=== PATIENT | female | born 1985 | race Caucasian/White ===

== ENCOUNTER → 2016-05-10 | Outpatient (CLI) | payer BC, OTHER ==
[~2016-05-10] MED LIST: ADVI200T PO; NORCOTAB PO; PRENTAB55 PO; TYLE167L PO
[2016-05-10 21:21] LABS: MEAN CORPUSCULAR HEMOGLOBIN 30.2 pg (27.0-33.0); MEAN CORPUSCULAR HGB CONC 34.5 g/dl (32.0-36.5); MEAN CORPUSCULAR VOLUME 87.5 fl (80.0-96.0); RED CELL DISTRIBUTION WIDTH 13.7 % (11.5-14.5); WHITE BLOOD COUNT 11.2 K/mm3 (4.0-10.0)
== END ==
LOC: M WUC 15:09
PROVIDERS: ATTEND Obstetrics & Gynecology
DX: Z34.82 Encounter for supervision of other normal pregnancy, second trimester (principal)

== ENCOUNTER → 2016-07-20 | Outpatient (REF) | payer BC, OTHER | LOC: M LAB REF 17:05 | PROVIDERS: ATTEND Advanced Practice Midwife | DX: Z34.83 Encounter for supervision of other normal pregnancy, third trimester (principal); Z3A.35 35 weeks gestation of pregnancy ==

== ENCOUNTER 2016-07-23 13:15 | Outpatient (CLI) | payer BC, OTHER ==
[~2016-07-23] VITALS: Ht 147.3 cm; Wt 68.0 kg
[2016-07-23 13:39] VITALS: BP 127/76
[2016-07-23] MEDS ORDERED: LR 1,000 ML IV SCH (14:00)
[2016-07-23 14:01] VITALS: BP 136/74
[2016-07-23 14:24] VITALS: BP 126/74
[2016-07-23 15:19] VITALS: BP 123/70
--- NOTE | 2016-07-23 16:01 | IPNPDOC ---
Date Seen The patient was seen on 07/23/16. Progress Note SUBJECTIVE: The patient is a 30-year-old female who is a 011 at 35 weeks 4 days gestation with an AMINA of 08/23/2016 based off of her LMP and consistent with her first trimester ultrasound. She initiated her care in the first trimester of her at [facility]. Her has been complicated with gestational hypertension. Patient had an elevated blood pressure on 07/20/2016 at 35 weeks 1 day gestation being 140/82. At that time patient denied any signs or symptoms of preeclampsia and script for a 24 urine and labs as given to patient for her to do. Patient presented to the office today with complaints of blurred vision, headache, nausea, and epigastric pain started this morning at 0800. Her blood pressure in the office once 160/98. She was sent over to labor and delivery for monitoring. Since being in labor and delivery, patient now denies epigastric pain, nausea, headache, visual changes. Patient reports symptoms resolved with the last 2 hours. OBJECTIVE: Category I FHR tracing. PHYSICAL EXAMINATION: VITAL SIGNS: Please see below. CARDIOVASCULAR: Regular rate and rhythm. RESPIRATORY: Regular rate. No use of accessory muscles. Lugs clear bilaterally. ABDOMINAL: gravid EXTREMITIES: No pitting edema. NEUROLOGICAL: A+Ox3 ASSESSMENT: IUP at 35 weeks 4 days gestation, gestational hypertension, category 1 heart rate tracing PLAN: Patient was sent to labor and delivery for observation. IV with lactated Ringer's ordered labs as ordered. Clear liquid diet. Out of bed to bathroom only. Patient is to initiate a 24-hour urine while in hospital. Diagnosis of gestational hypertension reviewed with patient. Reviewed follow up in office for remainder of . Patient is to have weekly OB and NST visits. She will do a growth ultrasound this week also. Patient given a letter to be out of work. All labs reviewed and WNL. Doctor Onel to review labs and vital signs and initiate discharge. VS, I&O, 24H, Fishbone Vital Signs/I&O Vital Signs Date Time Temp Pulse Resp B/P Pulse Ox O2 Delivery O2 Flow Rate FiO2 07/23/16 14:24 110 18 126/74 07/23/16 13:39 99.2 Vital Signs Label Value Date Time Pulse 96 07/23/16 1401 Respiratory Rate 18 bpm 07/23/16 1401 Blood Pressure Assessment 136/74 (94) 07/23/16 1401 Source Automatic Cuff (NIBP) Pulse 110 07/23/16 1424 Respiratory Rate 18 bpm 07/23/16 1424 Blood Pressure Assessment 126/74 (91) 07/23/16 1424 Source Automatic Cuff (NIBP) Laboratory Data 24H LABS Laboratory Tests 2 07/23/16 13:32: Serology Scanned Report Hepatitis B Testing 07/23/16 14:01: Blood Urea Nitrogen 11, Creatinine 0.55, Sodium Level 137, Potassium Level 3.8, Chloride Level 102, Carbon Dioxide Level 25, Calcium Level 9.4, Aspartate Amino Transf (AST/SGOT) 17, Alanine Aminotransferase (ALT/SGPT) 15, Alkaline Phosphatase 78, Total Bilirubin 0.4, Uric Acid 3.4, Total Protein 6.4, Albumin 2.9L, Albumin/Globulin Ratio 0.83L, Anion Gap 10, Glomerular Filtration Rate > 60.0 07/23/16 14:02: Urine Random Creatinine 80.9, Urine Random Total Protein 12.4H CBC/BMP Laboratory Tests 07/23/16 14:01 Calcium Level 9.4, Aspartate Amino Transf (AST/SGOT) 17, Alanine Aminotransferase (ALT/SGPT) 15, Alkaline Phosphatase 78, Total Bilirubin 0.4, Uric Acid 3.4, Total Protein 6.4, Albumin 2.9 L, Red Blood Count 3.72 L, Mean Corpuscular Volume 87.3, Mean Corpuscular Hemoglobin 31.1, Mean Corpuscular Hemoglobin Concent 35.6, Red Cell Distribution Width 13.0 Item Value Date Time White Blood Count 9.2 K/mm3 07/23/16 1401 Urine Random Creatinine 80.9 MG/DL 07/23/16 1402 Urine Random Total Protein 12.4 MG/DL H 07/23/16 1402 Blood Urea Nitrogen 11 MG/DL 07/23/16 1401 Creatinine 0.55 MG/DL 07/23/16 1401 Glomerular Filtration Rate > 60.0 07/23/16 1401 Fasting Glucose 103 MG/DL 07/23/16 1401 Uric Acid 3.4 MG/DL 07/23/16 1401 Total Bilirubin 0.4 MG/DL 07/23/16 1401 Aspartate Amino Transf (AST/SGOT) 17 U/L 4/7/17 1401 Alanine Aminotransferase (ALT/SGPT) 15 U/L 07/23/16 1401 Alkaline Phosphatase 78 U/L 07/23/16 1401 Albumin 2.9 GM/DL L 07/23/16 1401 Albumin/Globulin Ratio 0.83 L 07/23/16 1401 MARGARET FORTE CNM Jul 23, 2016 16:01
[2016-07-23 16:27] VITALS: BP 136/68
[2016-07-23 17:25] VITALS: BP 119/65
== END 2016-07-23 17:40 | disposition home or self-care (01) ==
LOC: M LDO 13:15
PROVIDERS: ATTEND Obstetrics & Gynecology
DX: O13.3 Gestational [pregnancy-induced] hypertension without significant proteinuria, third trimester (principal); Z3A.35 35 weeks gestation of pregnancy

== ENCOUNTER → 2016-07-24 | Outpatient (CLI) | payer BC, OTHER ==
[2016-07-24 15:39] LABS: MEAN CORPUSCULAR HEMOGLOBIN 31.1 pg (27.0-33.0); MEAN CORPUSCULAR VOLUME 88.8 fl (80.0-96.0); RED CELL DISTRIBUTION WIDTH 13.2 % (11.5-14.5); WHITE BLOOD COUNT 7.8 K/mm3 (4.0-10.0)
[2016-07-25 09:59] LABS: ALT/SGPT 14 U/L (12-78); AST/SGOT 13 U/L (15-37); BILIRUBIN,TOTAL 0.4 MG/DL (0.2-1.0); CREATININE FOR GFR 0.61 MG/DL (0.55-1.02); GLOMERULAR FILTRATION RATE > 60.0 (>60); URIC ACID 3.4 MG/DL (2.6-6.0)
== END ==
LOC: M LAB 14:09
PROVIDERS: ATTEND Advanced Practice Midwife
DX: R03.0 Elevated blood-pressure reading, without diagnosis of hypertension (principal)

== ENCOUNTER 2016-08-21 04:51 | Inpatient (IN) | payer BC, OTHER ==
[~2016-08-21] VITALS: Ht 147.3 cm; Wt 71.0 kg
[2016-08-21] MEDS ORDERED: LR 1,000 ML IV SCH (05:20)
[2016-08-21] MEDS ORDERED: FENTANYL 2MCG/ML ROPIVACAINE 0.2% IN 0.9% NACL 200ML IVBAG As Ordered ONE (05:37)
[2016-08-21 05:38] LABS: MEAN CORPUSCULAR HEMOGLOBIN 31.5 pg (27.0-33.0); MEAN CORPUSCULAR HGB CONC 34.9 g/dl (32.0-36.5); MEAN CORPUSCULAR VOLUME 90.4 fl (80.0-96.0); RED CELL DISTRIBUTION WIDTH 13.1 % (11.5-14.5); WHITE BLOOD COUNT 12.3 K/mm3 (4.0-10.0)
--- NOTE | 2016-08-21 06:09 | HPEPDOC ---
Obstetrical History & Physical General Date of Admission August 21, 2016 at 05:16 Primary Care Physician: MARGARET FORTE CNM History of Present Illness Patient is a 30-year-old female who is a at 39 weeks 5 days gestation with an AMINA of 08/23/2016 based off of her LMP and consistent with her first trimester ultrasound. She initiated care in her first trimester at [facility]. Her has been complicated by gestational hypertension. Her pressures became elevated at 35 weeks gestation where she had two elevated BPs. She was taken out of work and by 36 weeks her blood pressures were normotensive at every visit. She presents to labor and delivery this morning with complaints of contractions every 3 minutes for the last 2 hours. She also reports bloody show and active movement. Denies leaking of fluid. Chief Complaint: Contractions, term, Gestational Hypertension Information Provided By: Patient Age: 30 : 3 Term: 1 Pre-term: 0 Abortions: 1 Livin Care Care: Good Care Number of Visits: 15 Dating Final EDC: August 23, 2016 Final EDC by: LMP LMP: Nov 17, 2015 EGA at Admission: 39.5 Antepartum Course Diagnos(e)s Gestational HTN Height (inches): 58 Pre- weight (lbs.): 148 Admission Weight (lbs.): 160 Change in Weight (lbs.): 12 Past Medical History Past Obstetrical History : Type of Delivery: Spontaneous Vaginal Del. (at 38 weeks gestation) Sex of : Male (weighing 5 lbs. 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 Marital Status: Single Family situation: Spouse/partner home Psychosocial History: No pertinent psych hx * Smoker: non-smoker Alcohol: Denies Drugs: denies Abuse Violence Screening Have you been hit/kicked/slapp: No Have you been sexually assault: No Imunizations Tdap status: current Allergies Coded Allergies: Hydrocodone (Verified Adverse Reaction, Intermediate, VOMITTING, 07/23/16) Tramadol (Verified Adverse Reaction, Intermediate, VOMITTING, 07/23/16) Medications Scheduled Multivitamins/ ( 19) 1 Tab Tab, 1 TAB PO DAILY Physical Examination Physical Examination GENERAL: Alert and oriented times three. BREAST: . ABDOMEN: Gravid and non-tender to touch. FETUS: Is vertex (VTX) by sterile vaginal examination (SVE), fetus is vertex ( VTX) by Satish. HEART RATE: Regular rate and rhythm. LUNGS: Clear to auscultation (CTA). EXTREMITIES: No edema. No clonus.. Laboratory Data 24H LABS Laboratory Tests 2 08/21/16 05:01: Serology Scanned Report Hepatitis B Testing 08/21/16 05:27: CBC/BMP Laboratory Tests 08/21/16 05:27 Red Blood Count 4.05, Mean Corpuscular Volume 90.4, Mean Corpuscular Hemoglobin 31.5, Mean Corpuscular Hemoglobin Concent 34.9, Red Cell Distribution Width 13.1 Urine Culture: No Growth Pertinent Laboratoy Data Blood Type: A+ RBC Antibody Screen: Negative HIV: Negative Hepatitis B: Negative Rapid Plasma Reagin: Nonreactive Rubella: Immune Chlamydia/Gonorrhea: Negative Group B Streptococcus: Negative Quad Screen Test: Negative Glucose Tolerance Test: 86 Vaginal Examination Dilation: 5 cm Effacement: Other (100%) Station: -1 Cervical Position: Anterior Presentation: Cephalic presentation Position: Vertex (occiput) Assessment Heart Rate (FHR): 140 Variability: Moderate Accelerations: Positive Decelerations: Early Tocometer Contractions: Yes Frequency: every 2-5 min. Strength: palpated as moderate Multi-drug resistant Organism: No history of MDRO Assessment/Plan Assessment IUP at 39 weeks 5 days gestation Gestational hypertension Active labor Category 1 heart rate tracing Plan Patient admitted to labor and delivery. IV and labs per protocol. Out of bed ad anjum. Clear liquid diet. Patient desires epidural for pain management. Anesthesia consult ordered. Consider AROM with patient's consent. Anticipate cervical change and spontaneous vaginal delivery. MARGARET FORTE CNM August 21, 2016 06:09
[2016-08-21] MEDS ORDERED: diphenhydrAMINE INJ 50MG/ML VIAL (J1200) IV PRN (07:45)
[2016-08-21] MEDS ORDERED: REFRIGERATOR IV KEYS XX PRN (07:45)
[2016-08-21] MEDS ORDERED: ePHEDrine SULFATE 25 MG/5 ML(5MG/ML) SYRINGE IV PRN (07:45)
[2016-08-21] MEDS ORDERED: LACTATED RINGER'S 1000 ML IV PRN (07:45)
[2016-08-21] MEDS ORDERED: EPIDURAL COMMENT XX SCH (07:45)
[2016-08-21] MEDS ORDERED: FENTANYL/ROPIVACAINE/NACL BAG 200 ML EPIDURAL SCH (07:45)
[2016-08-21] MEDS ORDERED: ONDANSETRON 4MG/2ML VIAL (J2405) IV PRN (07:45)
[2016-08-21] MEDS ORDERED: EPIDURAL/PCA KEYS XX PRN (07:45)
[2016-08-21] MEDS ORDERED: NALOXONE INJ 0.4 MG/1 ML VIAL (J2310) IV PRN (07:45)
[2016-08-21] MEDS ORDERED: OXYTOCIN 30 UNITS IN 0.9% NaCl 500ML IV BAG (J2590) As Ordered ONE (09:11)
[2016-08-21] MEDS ORDERED: OXYTOCIN DRIP 30 UNITS in APPROPRIATE DILUENT 1 EA IV SCH (14:36)
[2016-08-21] MEDS ORDERED: RHOGAM 300 MCG (1500 IU) INJ (J2790) IM SCH (14:45)
[2016-08-21] MEDS ORDERED: ACETAMINOPHEN 500 MG TAB PO PRN (14:45)
[2016-08-21] MEDS ORDERED: METHYLERGONOVINE MALEATE 0.2 MG TAB PO PRN (14:45)
[2016-08-21] MEDS ORDERED: DIBUCAINE 1% OINTMENT 30GM TOP PRN (14:45)
[2016-08-21] MEDS ORDERED: ANUSOL HC CREAM 30GM TOP PRN (14:45)
[2016-08-21] MEDS ORDERED: MEASLES,MUMPS,RUBELLA VACCINE INJ (MMR-II) (90707) SC SCH (14:45)
[2016-08-21] MEDS ORDERED: DOCUSATE SODIUM 100 MG CAP PO PRN (14:45)
[2016-08-21 15:06] LABS: CORD GAS ABE A -4.3; CORD GAS HCO3 A 23.3 MEQ/L; CORD GAS O2 SAT A 54.5 %; CORD GAS PCO2 A 53.1 mmHg; CORD GAS PH A 7.261 UNITS; CORD GAS PO2 A 27.2 mmHg; CORD GAS SBC A 19.9 MEQ/L
[2016-08-21 15:07] LABS: CORD GAS HCO3 V 20.4 MEQ/L; CORD GAS O2 SAT V 79.8 %; CORD GAS PCO2 V 39.4 mmHg; CORD GAS PH V 7.333 UNITS; CORD GAS TCO2 V 21.7 MEQ/L
[2016-08-21] MEDS: IBUPROFEN 800 MG TAB PO PRN (15:42)
[2016-08-21 16:10] VITALS: BP 123/68
[2016-08-21 18:11] VITALS: BP 114/59
[2016-08-22] MEDS: IBUPROFEN 800 MG TAB PO PRN ×3 (01:46→22:29)
[2016-08-22 05:42] VITALS: BP 125/57
[2016-08-22] MEDS: PRENATAL VITAMIN TAB PO SCH (08:02)
--- NOTE | 2016-08-22 16:04 | DN ---
DATE: 08/21/2016 Jayne is a 30-year-old female 3, para 1-0-1-1 who presented at 39+ weeks gestation in labor. She progressed to fully dilated, pushed for approximately 2-1/2 hours with deep variable deceleration with good recovery. The patient delivered a live male infant in occiput posterior position with terminal meconium. scores were 8 and 9. weight 6 pounds 11 ounces. Placenta delivered spontaneously intact. Three-vessel cord. Perineum, vagina, cervix inspected. No laceration noted. Estimated blood loss 300 mL. Both mother and baby in stable condition.
[2016-08-22 17:45] VITALS: BP 126/75
[2016-08-23 05:27] VITALS: BP 121/65
[2016-08-23] MEDS: PRENATAL VITAMIN TAB PO SCH (08:22)
[2016-08-23] MEDS ORDERED: IBUP-1114 PO (09:11)
[2016-08-23] MEDS ORDERED: ACET50TA PO (09:11)
== END 2016-08-23 12:05 | disposition home or self-care (01) | DRG 560 ==
LOC: M LDO 04:51 → M LDI 05:16 → M OBS 15:48
PROVIDERS: ADMIT Advanced Practice Midwife; ATTEND Advanced Practice Midwife
PROC: 10E0XZZ Delivery of Products of Conception, External Approach (ICD-10-PCS; principal; 2016-08-21)
DX: O13.4 Gestational [pregnancy-induced] hypertension without significant proteinuria, complicating childbirth (principal); Z88.5 Allergy status to narcotic agent; Z37.0 Single live birth; Z3A.39 39 weeks gestation of pregnancy; Z80.9 Family history of malignant neoplasm, unspecified; Z82.49 Family history of ischemic heart disease and other diseases of the circulatory system; Z79.899 Other long term (current) drug therapy

== ENCOUNTER 2016-08-28 04:27 | Emergency (ER) | payer BC, OTHER ==
[~2016-08-28] VITALS: Ht 152.4 cm; Wt 72.6 kg
[~2016-08-28 04:27] MED LIST changes: +ACET50TA PO; +IBUP-1114 PO
[2016-08-28] MEDS ORDERED: ISOVUE-370 76% 100ML VIAL (Q9967) As Ordered ONE (05:45)
[2016-08-28] MEDS ORDERED: IPRATROPIUM 0.5MG/ALBUTEROL 2.5MG INH SOL UD 3ML (DUONEB)(J7620) NEB ONE (05:45)
[2016-08-28] MEDS ORDERED: ACETAMINOPHEN TAB 650MG DOSE (2X325MG) PO ONE (05:45)
[2016-08-28 05:59] LABS: BASO % 0.2 % (0.0-1.0); EOS # 0.1 K/mm3 (0.0-0.50); EOS % 1.2 % (0.0-3.0); LARGE UNSTAINED CELL # 0.1 K/mm3 (0.0-0.4); LARGE UNSTAINED CELL % 0.5 % (0.0-4.0); LYMPH # 1.1 K/mm3 (1.5-4.5); LYMPH % 10.6 % (24.0-44.0); MEAN CORPUSCULAR HEMOGLOBIN 31.5 pg (27.0-33.0); MEAN CORPUSCULAR HGB CONC 34.9 g/dl (32.0-36.5); MEAN CORPUSCULAR VOLUME 90.2 fl (80.0-96.0); MONO # 0.5 K/mm3 (0.0-0.8); MONO % 4.8 % (0.0-5.0); NEUTROPHILS # 8.6 K/mm3 (1.8-7.7); NEUTROPHILS % 82.6 % (36.0-66.0); PLATELET COUNT, AUTOMATED 319 k/mm3 (150-450); RED CELL DISTRIBUTION WIDTH 12.8 % (11.5-14.5); WHITE BLOOD COUNT 10.4 K/mm3 (4.0-10.0)
[2016-08-28 06:18] LABS: ANION GAP 10 MEQ/L (8-16); BLOOD UREA NITROGEN 15 MG/DL (7-18); CALCIUM LEVEL 8.8 MG/DL (8.5-10.1); CARBON DIOXIDE LEVEL 27 MEQ/L (21-32); CHLORIDE LEVEL 106 MEQ/L (98-107); CREATININE FOR GFR 0.65 MG/DL (0.55-1.02); GLOMERULAR FILTRATION RATE > 60.0 (>60); GLUCOSE, FASTING 96 MG/DL (70-105); POTASSIUM SERUM 3.6 MEQ/L (3.5-5.1); SODIUM LEVEL 143 MEQ/L (136-145)
[2016-08-28 06:25] LABS: ABG BASE EXCESS 1.1 (-2.0-2.0); ABG HCO3 24.1 MEQ/L (22.0-26.0); ABG PARTIAL PRESSURE CO2 32.7 mmHg (35.0-45.0); ABG PARTIAL PRESSURE O2 75.8 mmHg (75.0-100.0); ABG STANDARD HCO3 25.4 MEQ/L (22.0-26.0); ABG TOTAL CO2 25.1 MEQ/L (22.0-29.0); ABG pH (ARTERIAL) 7.485 UNITS (7.350-7.450)
--- NOTE | 2016-08-28 06:30 | REPUSA ---
CLINICAL HISTORY: Dyspnea, exclude PE. TECHNIQUE: Multiple incremental axial, coronal and oblique images are obtained from the thoracic inle t to the upper abdomen. Intravenous contrast material was administered as per pulmonary embolism prot ocol. COMMENTS: Minimal right pleural effusion. Mild bilateral interstitial pulmonary thickening. Ground glass densities in the right middle lobe and bilateral lower lobes. There is excellent opacification of pulmonary arterial system without evidence for pulmonary embolism . Aorta is of normal caliber without evidence for dissection or aneurysm. There is no evidence of pleural or parenchymal mass. There are no pleural effusions. There is no evid ence of hilar or mediastinal lymphadenopathy. The heart and great vessels are within normal limits. Images of the upper abdomen demonstrate no evidence of adrenal mass. The bony structures are free of lytic or blastic lesions. IMPRESSION: No evidence for pulmonary embolism. Minimal right pleural effusion. Ground glass densities in the right middle lobe and bilateral lower lobes. Multifocal congestion vers us infection. Clinical evaluation is suggested. Interstitial pulmonary thickening. Probably secondary to interstitial congestion. Thank you for your kind referral of this patient.
[2016-08-28] MEDS ORDERED: LEVA750T PO (06:39)
[2016-08-28 06:43] VITALS: BP 133/76
[2016-08-28] MEDS ORDERED: ALBUTEROL 90 MCG/ACT 8GM HFA INHALER INH ONE (06:45)
[2016-08-28] MEDS ORDERED: LevoFLOXacin 750 MG TABLET PO ONE (06:45)
--- NOTE | 2016-08-28 16:46 | ECGEPIP ---
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
== END 2016-08-28 06:53 | disposition home or self-care (01) ==
LOC: M ED 05:32
DX: J18.8 Other pneumonia, unspecified organism (principal)
CPT/HCPCS: 71275; 80048; 82803; 85025; 87040; 93005; 93041; 99284; Q9967

== ENCOUNTER → 2018-05-25 | Outpatient (REF) | payer OTHER ==
[~2018-05-25] MED LIST changes: -ACET50TA PO; +LEVA750T7 PO; +MAPA500T2 PO
[2018-05-25 18:09] LABS: HEMATOCRIT 35.2 % (36.0-47.0); HEMOGLOBIN 12.4 g/dl (12.0-15.5); MEAN CORPUSCULAR HGB CONC 35.2 g/dl (32.0-36.5); MEAN CORPUSCULAR VOLUME 85.2 fl (80.0-96.0); PLATELET COUNT, AUTOMATED 348 10^3/uL (150-450); RED BLOOD COUNT 4.13 10^6/uL (4.00-5.40); WHITE BLOOD COUNT 10.1 10^3/uL (4.0-10.0)
[2018-05-25 19:03] LABS: HCG, SERUM QUANTITATIVE 24756 MIU/ML
[2018-05-26 13:24] LABS: RUBELLA IgG QUALITATIVE IMMUNE (IMMUNE)
[2018-05-26 13:54] LABS: HIV 1&2 SCREEN CENTAUR NEGATIVE (NEGATIVE)
== END ==
LOC: M LAB REF 16:36
PROVIDERS: ATTEND Obstetrics & Gynecology
DX: Z32.01 Encounter for pregnancy test, result positive (principal); O36.80X0 Pregnancy with inconclusive fetal viability, not applicable or unspecified; Z3A.00 Weeks of gestation of pregnancy not specified

== ENCOUNTER → 2018-07-04 | Outpatient (REF) | payer OTHER | LOC: M LAB REF 13:37 | PROVIDERS: ATTEND Obstetrics & Gynecology | DX: R30.0 Dysuria (principal) ==

== ENCOUNTER → 2018-08-09 | Outpatient (REF) | payer OTHER ==
[~2018-08-09] MED LIST changes: +HYDR-3715 PO; -NORCOTAB PO
[2018-08-09 17:32] LABS: APPEARANCE, URINE HAZY (CLEAR); BACTERIA, URINE AUTO 2+ (NEGATIVE); BILIRUBIN, URINE AUTO NEGATIVE (NEGATIVE); BLOOD, URINE BLOOD 3+ (NEGATIVE); COLOR, URINE YELLOW (YELLOW); GLUCOSE, URINE (UA) AUTO NEGATIVE (NEGATIVE); KETONE, URINE AUTO NEGATIVE (NEGATIVE); LEUKOCYTE ESTERASE, URINE AUTO 3+ (NEGATIVE); NITRITE, URINE AUTO NEGATIVE (NEGATIVE); PROTEIN, URINE AUTO NEGATIVE (NEGATIVE); RBC, URINE AUTO 8 /HPF (0-3); SQUAMOUS EPITHELIAL CELL UR AU 1 /HPF (0-6); UROBILINOGEN, URINE AUTO 0.2 mg/dL (0.0-2.0); WBC, URINE AUTO 18 /HPF (0-3)
== END ==
LOC: M LAB REF 17:03
PROVIDERS: ATTEND Obstetrics & Gynecology
DX: N39.0 Urinary tract infection, site not specified (principal)

== ENCOUNTER → 2018-10-12 | Outpatient (CLI) | payer OTHER ==
[2018-10-12 16:45] LABS: BASO % 0.4 % (0.0-1.0); EOS # 0.1 10^3/uL (0.0-0.50); EOS % 1.4 % (0.0-3.0); HEMATOCRIT 32.6 % (36.0-47.0); HEMOGLOBIN 11.3 g/dl (12.0-15.5); LYMPH # 1.8 10^3/uL (1.5-4.5); LYMPH % 18.5 % (24.0-44.0); MEAN CORPUSCULAR HEMOGLOBIN 31.7 pg (27.0-33.0); MEAN CORPUSCULAR HGB CONC 34.7 g/dl (32.0-36.5); MEAN CORPUSCULAR VOLUME 91.6 fl (80.0-96.0); MONO # 0.7 10^3/uL (0.0-0.8); MONO % 7.5 % (0.0-5.0); NEUTROPHILS # 6.9 10^3/uL (1.8-7.7); NEUTROPHILS % 71.6 % (36.0-66.0); PLATELET COUNT, AUTOMATED 267 10^3/uL (150-450); RED BLOOD COUNT 3.56 10^6/uL (4.00-5.40); WHITE BLOOD COUNT 9.7 10^3/uL (4.0-10.0)
== END ==
LOC: M WUC 14:05
PROVIDERS: ATTEND Obstetrics & Gynecology
DX: Z34.82 Encounter for supervision of other normal pregnancy, second trimester (principal); Z3A.00 Weeks of gestation of pregnancy not specified

== ENCOUNTER → 2018-12-13 | Outpatient (REF) | payer OTHER | LOC: M LAB REF 17:01 | PROVIDERS: ATTEND Obstetrics & Gynecology | DX: Z34.83 Encounter for supervision of other normal pregnancy, third trimester (principal); Z3A.00 Weeks of gestation of pregnancy not specified ==

== ENCOUNTER 2019-01-01 05:59 | Inpatient (IN) | payer BC, OTHER ==
[~2019-01-01] VITALS: Ht 147.3 cm; Wt 74.1 kg
[2019-01-01 06:14] VITALS: BP 143/85
[2019-01-01] MEDS ORDERED: OXYTOCIN 30 UNITS IN 0.9% NaCl 500ML IV BAG (J2590) As Ordered ONE (06:20)
[2019-01-01 06:43] VITALS: BP 156/82
[2019-01-01 06:58] VITALS: BP 159/82
[2019-01-01] MEDS ORDERED: OXYTOCIN INJ 10 UNITS/ML VIAL (J2590) IM ONE (07:15)
[2019-01-01] MEDS ORDERED: MEASLES,MUMPS,RUBELLA VACCINE INJ (MMR-II) (90707) SC SCH (07:45)
[2019-01-01] MEDS ORDERED: DOCUSATE SODIUM 100 MG CAP PO PRN (07:45)
[2019-01-01] MEDS ORDERED: RHOGAM 300 MCG (1500 IU) INJ (J2790) IM SCH (07:45)
[2019-01-01] MEDS ORDERED: ACETAMINOPHEN TAB 650MG DOSE (2X325MG) PO PRN (07:45)
[2019-01-01] MEDS ORDERED: IBUPROFEN 600 MG TAB PO PRN (07:45)
[2019-01-01] MEDS ORDERED: DIBUCAINE 1% OINTMENT 30GM TOP PRN (07:45)
[2019-01-01] MEDS: ACETAMINOPHEN 500 MG TAB PO PRN ×3 (08:00→22:29)
[2019-01-01] MEDS: PRENATAL VITAMINS CHEWABLE TABLET PO SCH (09:19)
[2019-01-01] MEDS: IBUPROFEN 800 MG TAB PO PRN ×2 (09:21→18:14)
[2019-01-01 11:15] VITALS: BP 136/67
[2019-01-01 13:25] LABS: HEMATOCRIT 32.1 % (36.0-47.0); HEMOGLOBIN 11.1 g/dl (12.0-15.5); MEAN CORPUSCULAR HEMOGLOBIN 30.2 pg (27.0-33.0); MEAN CORPUSCULAR HGB CONC 34.6 g/dl (32.0-36.5); MEAN CORPUSCULAR VOLUME 87.5 fl (80.0-96.0); PLATELET COUNT, AUTOMATED 225 10^3/uL (150-450); RED BLOOD COUNT 3.67 10^6/uL (4.00-5.40); WHITE BLOOD COUNT 12.1 10^3/uL (4.0-10.0)
[2019-01-01 18:31] VITALS: BP 132/64
[2019-01-02] MEDS: IBUPROFEN 800 MG TAB PO PRN (05:34)
[2019-01-02 05:45] VITALS: BP 132/82
[2019-01-02 07:59] VITALS: BP 132/82
[2019-01-02] MEDS: PRENATAL VITAMINS CHEWABLE TABLET PO SCH (09:00)
== END 2019-01-02 11:55 | disposition home or self-care (01) | DRG 560 ==
LOC: M LDO 05:59 → M LDI 06:21 → M PED 09:52 → M LDI 10:10 → M PED 11:01
PROVIDERS: ADMIT Obstetrics & Gynecology; ATTEND Obstetrics & Gynecology
PROC: 10E0XZZ Delivery of Products of Conception, External Approach (ICD-10-PCS; principal; 2019-01-01)
DX: O80 Encounter for full-term uncomplicated delivery (principal); Z37.0 Single live birth; Z3A.38 38 weeks gestation of pregnancy

== ENCOUNTER → 2020-03-23 | Outpatient (CLI) | payer BC, OTHER | LOC: M LABSMTC 08:57 | PROVIDERS: ATTEND Anesthesiology | DX: Z11.59 Encounter for screening for other viral diseases (principal) ==

== ENCOUNTER 2020-03-28 06:28 | Day surgery (SDC) | payer BC, OTHER ==
[~2020-03-28] VITALS: Ht 147.3 cm; Wt 65.8 kg
[~2020-03-28 06:28] MED LIST changes: +LIDOCAINE 1% MDV 20ML VIAL SQ PRN; +LR 1,000 ML IV ONE
[2020-03-28 07:13] LABS: HEMATOCRIT 39.1 % (36.0-47.0); HEMOGLOBIN 13.6 g/dl (12.0-15.5); MEAN CORPUSCULAR HGB CONC 34.8 g/dl (32.0-36.5); MEAN CORPUSCULAR VOLUME 86.3 fl (80.0-96.0); PLATELET COUNT, AUTOMATED 335 10^3/uL (150-450); RED BLOOD COUNT 4.53 10^6/uL (4.00-5.40); WHITE BLOOD COUNT 6.9 10^3/uL (4.0-10.0)
[2020-03-28] MEDS ORDERED: MIDAZOLAM INJ 2MG/2ML VIAL (J2250 PER 1MG) As Ordered ONE (07:44)
[2020-03-28] MEDS ORDERED: dexameTHASONE 4 MG/ML 1ML VIAL (J1100 PER 1MG) As Ordered ONE (07:44)
[2020-03-28] MEDS ORDERED: ONDANSETRON 4MG/2ML VIAL As Ordered ONE (07:44)
[2020-03-28] MEDS ORDERED: KETOROLAC 60MG 2ML VIAL As Ordered ONE (07:44)
[2020-03-28] MEDS ORDERED: fentaNYL 100 MCG/2 ML INJECTION (J3010) As Ordered ONE (07:44)
[2020-03-28] MEDS ORDERED: METOCLOPRAMIDE INJ 10MG/2ML VIAL (J2765 PER 1) As Ordered ONE (07:44)
[2020-03-28] MEDS ORDERED: propofoL 200 MG/20 ML VIAL As Ordered ONE ×2 (07:44→07:46)
[2020-03-28] MEDS ORDERED: ACETAMINOPHEN 1000MG 100ML IV BTL (OFIRMEV) (J0131 PER 10MG) As Ordered ONE (07:53)
[2020-03-28] MEDS ORDERED: PERCOCET 5MG/325MG TAB PO PRN (08:45)
[2020-03-28] MEDS ORDERED: fentaNYL 100 MCG/2 ML INJECTION (J3010) IV PRN (08:45)
[2020-03-28] MEDS ORDERED: HYDROMORPHONE HCL 0.5 MG/ 0.5 ML SYRINGE (J1170 PER 1) IV PRN (08:45)
[2020-03-28] MEDS ORDERED: ONDANSETRON 4MG/2ML VIAL IV PRN (08:45)
[2020-03-28] MEDS ORDERED: LR 1,000 ML IV SCH (08:45)
[2020-03-28] MEDS: oxyCODONE 5MG TAB PO PRN ×2 (09:00→10:22)
--- NOTE | 2020-03-28 09:05 | RO ---
OPERATIVE NOTE DATE OF OPERATION: 03/28/2020 INDICATIONS FOR PROCEDURE: Jayne is a 34-year-old female with excessive menstrual cycle. After counseling in the office, the decision was made to proceed with Dilation and curettage (D&C), hysteroscopy, and NovaSure ablation. PREOPERATIVE DIAGNOSIS: Excessive menstruation. POSTOPERATIVE DIAGNOSIS: Excessive menstruation. PROCEDURES: 1. Dilation and curettage (D&C). 2. Hysteroscopy. 3. NovaSure ablation. ANESTHESIA: General. SURGEON: Dae Sykes D.O. COMPLICATIONS: None. ESTIMATED BLOOD LOSS: Less than 20 mL. FINDINGS: A normal appearing cavity with bilateral tubal ostia visualized. SPECIMEN(S) SENT TO LAB: Endometrial curetting. DESCRIPTION OF PROCEDURE: After obtaining informed consent, the patient was taken to the operating room where general anesthetic was found to be adequate. She was then prepped and draped in the usual sterile fashion in the dorsolithotomy position. At this point, a straight catheter to the bladder was performed for approximately 110 mL of clear urine. We then placed weighted-speculum in the posterior fornix of the vagina using a Lucio retractor. The anterior lip of the cervix was then grasped with a single-tooth tenaculum. The uterus was sound to approximately 9 cm in size, giving a total cavity length of 6. The cervix was then serially dilated. The hysteroscope was then inserted with the above-noted finding. At this point, the hysteroscope was removed, a sharp curettage of the endometrial lining was done, and the tissues were sent to pathology for final diagnosis. The NovaSure device was then inserted, the cavity length adjusted to 6, and the cavity width to 3.5. After passing a cavity test, the device was enabled and the endometrial ablation cycle was then started. The cycle lasted approximately 54 seconds. Good ablative process noted. Good hemostasis noted. The patient tolerated the procedure well. She was then transferred to the recovery room in stable condition.
[2020-03-28] MEDS ORDERED: LIDOCAINE 2% 100MG/5ML SDV (FOR ANES.) As Ordered ONE (09:06)
[2020-03-28 10:20] VITALS: BP 117/71
[2020-03-28] MEDS ORDERED: IBUPROFEN 800 MG TAB PO SCH (14:00)
== END 2020-03-28 10:30 | disposition home or self-care (01) ==
LOC: M SDC 06:28
PROVIDERS: ATTEND Obstetrics & Gynecology
DX: N92.0 Excessive and frequent menstruation with regular cycle (principal); N84.0 Polyp of corpus uteri; Z88.5 Allergy status to narcotic agent
CPT/HCPCS: 36415; 58563; 81025; 85027; 86850; 86900; 86901; 88305; J0131; J1100; J1885; J2250; J2405; J2765; J3010

== ENCOUNTER → 2020-11-17 | Outpatient (REF) | payer OTHER ==
[~2020-11-17] MED LIST changes: -LIDOCAINE 1% MDV 20ML VIAL SQ PRN; -LR 1,000 ML IV ONE
[2020-11-17 14:13] LABS: ALT/SGPT 24 U/L (12-78); BILIRUBIN,TOTAL 0.6 MG/DL (0.2-1.0); BLOOD UREA NITROGEN 14 MG/DL (7-18); CALCIUM LEVEL 9.1 MG/DL (8.5-10.1); CARBON DIOXIDE LEVEL 30 MEQ/L (21-32); CHLORIDE LEVEL 107 MEQ/L (98-107); CHOLESTEROL LEVEL 162 MG/DL (<200); CREATININE FOR GFR 0.55 MG/DL (0.55-1.30); GLOMERULAR FILTRATION RATE > 60.0 (>60); GLUCOSE, FASTING 84 MG/DL (70-100); HDL CHOLESTEROL 50 MG/DL (>40); LDL CHOLESTEROL 100 MG/DL (<100); MAGNESIUM LEVEL 2.1 MG/DL (1.8-2.4); NON-HDL-C 112 MG/DL; POTASSIUM SERUM 4.2 MEQ/L (3.5-5.1); SODIUM LEVEL 141 MEQ/L (136-145); TOTAL 25(OH) VITAMIN D 43.3 NG/ML (30.0-100.0); TOTAL PROTEIN 7.4 GM/DL (6.4-8.2); TRIGLYCERIDES LEVEL 59 MG/DL (<150)
== END ==
LOC: M SFHCADAM 08:59
PROVIDERS: ATTEND Physician Assistant
DX: Z00.00 Encounter for general adult medical examination without abnormal findings (principal); Z82.49 Family history of ischemic heart disease and other diseases of the circulatory system

== ENCOUNTER 2021-08-01 12:00 | Emergency (ER) | payer BC, OTHER ==
[~2021-08-01] VITALS: Ht 147.3 cm; Wt 65.9 kg
[2021-08-01 13:17] LABS: BASO % 0.5 % (0.0-1.0); EOS # 0.2 10^3/uL (0.0-0.5); EOS % 2.4 % (0.0-3.0); HEMATOCRIT 37.4 % (36.0-47.0); LYMPH # 1.8 10^3/uL (1.5-5.0); MEAN CORPUSCULAR HEMOGLOBIN 30.4 pg (27.0-33.0); MEAN CORPUSCULAR HGB CONC 34.8 g/dl (32.0-36.5); MEAN CORPUSCULAR VOLUME 87.4 fl (80.0-96.0); MONO # 0.6 10^3/uL (0.0-0.8); MONO % 7.2 % (2.0-8.0); NEUTROPHILS # 5.3 10^3/uL (1.5-8.5); NEUTROPHILS % 66.8 % (36.0-66.0); PLATELET COUNT, AUTOMATED 361 10^3/uL (150-450); RED BLOOD COUNT 4.28 10^6/uL (4.00-5.40)
[2021-08-01] MEDS ORDERED: KETOROLAC 30 MG/ML 1ML VIAL IV ONE (13:20)
[2021-08-01 14:17] LABS: BILIRUBIN,DIRECT 0.1 MG/DL (0.0-0.2); BILIRUBIN,TOTAL 0.5 MG/DL (0.2-1.0); TOTAL PROTEIN 7.5 GM/DL (6.4-8.2)
[2021-08-01] MEDS ORDERED: KETO10TAB PO (14:40)
[2021-08-01 14:57] VITALS: BP 134/81
[2021-08-02] MEDS ORDERED: ONDA4TAB6 PO (18:39)
== END 2021-08-01 15:00 | disposition home or self-care (01) ==
LOC: M ED 12:00
DX: R10.9 Unspecified abdominal pain (principal); Z87.442 Personal history of urinary calculi; Z88.5 Allergy status to narcotic agent; Z79.899 Other long term (current) drug therapy
CPT/HCPCS: 74176; 80047; 80076; 81001; 83690; 84702; 85025; 96374; 99284; J1885

== ENCOUNTER 2021-08-02 14:32 | Emergency (ER) | payer BC, OTHER ==
[~2021-08-02] VITALS: Ht 147.3 cm; Wt 65.9 kg
[~2021-08-02 14:32] MED LIST changes: +KETO10TAB PO
[2021-08-02] MEDS ORDERED: NS 1,000 ML IV ONE (15:05)
[2021-08-02] MEDS ORDERED: PERCOCET 5MG/325MG TAB PO ONE (15:05)
[2021-08-02] MEDS ORDERED: ONDANSETRON 4MG/2ML VIAL IV ONE (15:05)
[2021-08-02 16:01] LABS: BASO % 0.4 % (0.0-1.0); EOS # 0.2 10^3/uL (0.0-0.5); EOS % 1.6 % (0.0-3.0); HEMATOCRIT 36.2 % (36.0-47.0); HEMOGLOBIN 12.7 g/dl (12.0-15.5); LYMPH # 1.4 10^3/uL (1.5-5.0); LYMPH % 14.9 % (24.0-44.0); MEAN CORPUSCULAR HEMOGLOBIN 30.5 pg (27.0-33.0); MEAN CORPUSCULAR HGB CONC 35.1 g/dl (32.0-36.5); MEAN CORPUSCULAR VOLUME 86.8 fl (80.0-96.0); MONO # 0.4 10^3/uL (0.0-0.8); MONO % 4.2 % (2.0-8.0); NEUTROPHILS # 7.6 10^3/uL (1.5-8.5); NEUTROPHILS % 78.6 % (36.0-66.0); PLATELET COUNT, AUTOMATED 343 10^3/uL (150-450); RED BLOOD COUNT 4.17 10^6/uL (4.00-5.40); WHITE BLOOD COUNT 9.6 10^3/uL (4.0-10.0)
[2021-08-02 17:58] LABS: GC DNA AMPLIFICATION NEGATIVE (NEGATIVE)
[2021-08-02 18:35] VITALS: BP 132/74
[2021-08-02] MEDS ORDERED: ONDA4TAB6 PO (18:39)
[2021-08-02] MEDS ORDERED: ONDANSETRON 4MG ORAL DISINTEGRATING TAB PO ONE (18:40)
[2021-08-02] MEDS ORDERED: OXYCODONE/APAP 5MG/325MG(BULK FOR ED) 1 TABLET PO ONE (18:40)
== END 2021-08-02 18:53 | disposition home or self-care (01) ==
LOC: M ED 14:32
DX: R10.2 Pelvic and perineal pain (principal); N93.8 Other specified abnormal uterine and vaginal bleeding; N83.292 Other ovarian cyst, left side; R93.89 Abnormal findings on diagnostic imaging of other specified body structures; Z87.442 Personal history of urinary calculi; Z88.5 Allergy status to narcotic agent; Z79.899 Other long term (current) drug therapy
CPT/HCPCS: 76830; 76856; 80047; 81001; 85025; 87210; 87661; 87810; 87850; 93976; 96361; 96374; 99284; J2405

== ENCOUNTER → 2021-08-21 | Outpatient (CLI) | payer BC, OTHER ==
[~2021-08-21] MED LIST changes: +ONDA4TAB6 PO
== END ==
LOC: M LABSMTC 11:18
PROVIDERS: ATTEND Anesthesiology
DX: Z01.812 Encounter for preprocedural laboratory examination (principal); Z20.822 Contact with and (suspected) exposure to COVID-19

== ENCOUNTER 2021-08-26 09:19 | Day surgery (SDC) | payer BC, OTHER ==
[~2021-08-26] VITALS: Ht 147.3 cm; Wt 68.5 kg
[~2021-08-26 09:19] MED LIST changes: +BUPIVACAINE/EPIN 0.25% 30 ML VIAL As Ordered ONE; +FLUORESCEIN 10% (100MG/ML) 5 ML VIAL As Ordered ONE; +LR 1,000 ML IV ONE; +ceFAZolin SOD 2 GM in IV 1 EA IV ONE
[2021-08-26] MEDS ORDERED: ROCURONIUM BROMIDE 50 MG/5 ML VIAL As Ordered ONE ×2 (10:38→12:55)
[2021-08-26] MEDS ORDERED: propofoL 200 MG/20 ML VIAL As Ordered ONE (10:38)
[2021-08-26] MEDS ORDERED: LIDOCAINE 2% 100MG/5ML SDV (FOR ANES.) As Ordered ONE (10:38)
[2021-08-26] MEDS ORDERED: MIDAZOLAM INJ 2MG/2ML VIAL (J2250 PER 1MG) As Ordered ONE (10:39)
[2021-08-26] MEDS ORDERED: fentaNYL 100 MCG/2 ML INJECTION As Ordered ONE (10:39)
[2021-08-26 10:41] LABS: HEMATOCRIT 37.4 % (36.0-47.0); HEMOGLOBIN 13.2 g/dl (12.0-15.5); MEAN CORPUSCULAR HEMOGLOBIN 30.5 pg (27.0-33.0); MEAN CORPUSCULAR HGB CONC 35.3 g/dl (32.0-36.5); MEAN CORPUSCULAR VOLUME 86.4 fl (80.0-96.0); PLATELET COUNT, AUTOMATED 322 10^3/uL (150-450); RED BLOOD COUNT 4.33 10^6/uL (4.00-5.40); WHITE BLOOD COUNT 6.6 10^3/uL (4.0-10.0)
[2021-08-26] MEDS ORDERED: SCOPOLAMINE 1MG TRANSDERMAL PATCH TOP ONE (10:45)
[2021-08-26] MEDS ORDERED: ADVI200T PO (10:57)
[2021-08-26] MEDS ORDERED: PERC5TAB12 PO (11:13)
[2021-08-26] MEDS ORDERED: dexameTHASONE 4 MG/ML 1ML VIAL (J1100 PER 1MG) As Ordered ONE (12:07)
[2021-08-26] MEDS ORDERED: ACETAMINOPHEN 1000MG 100ML IV BTL (OFIRMEV) (J0131 PER 10MG) As Ordered ONE (12:18)
[2021-08-26] MEDS ORDERED: ONDANSETRON 4MG/2ML VIAL As Ordered ONE (12:18)
[2021-08-26] MEDS ORDERED: KETOROLAC 60MG 2ML VIAL As Ordered ONE (12:18)
[2021-08-26] MEDS ORDERED: METOCLOPRAMIDE INJ 10MG/2ML VIAL (J2765 PER 1) As Ordered ONE (12:18)
[2021-08-26] MEDS ORDERED: HYDROmorphone HCL 2MG/ML 1ML VIAL As Ordered ONE (12:25)
[2021-08-26] MEDS ORDERED: ePHEDrine SULFATE 25 MG/5 ML(5MG/ML) SYRINGE As Ordered ONE (12:56)
[2021-08-26] MEDS ORDERED: ALBUTEROL 6.7GM INHALER **FOR ANES. CART/OMNICELL ONLY As Ordered ONE (12:58)
[2021-08-26] MEDS ORDERED: fentaNYL 100 MCG/2 ML INJECTION IV PRN (13:50)
[2021-08-26] MEDS ORDERED: LR 1,000 ML IV SCH ×2 (13:50→14:35)
[2021-08-26] MEDS ORDERED: oxyCODONE 5MG TAB PO PRN (13:50)
[2021-08-26] MEDS ORDERED: ONDANSETRON 4MG/2ML VIAL IV PRN (13:50)
[2021-08-26] MEDS ORDERED: PERCOCET 5MG/325MG TAB PO PRN (14:35)
[2021-08-26 16:55] VITALS: BP 123/77
[2021-08-26] MEDS ORDERED: SIMETHICONE 80MG CHEW TAB PO SCH (18:00)
[2021-08-26] MEDS ORDERED: IBUPROFEN 800 MG TAB PO SCH (19:00)
== END 2021-08-26 17:00 | disposition home or self-care (01) ==
LOC: M SDC 09:19
PROVIDERS: ATTEND Obstetrics & Gynecology
DX: N93.9 Abnormal uterine and vaginal bleeding, unspecified (principal); N80.0 Endometriosis of uterus; D25.9 Leiomyoma of uterus, unspecified; N72 Inflammatory disease of cervix uteri; R10.2 Pelvic and perineal pain; Z88.5 Allergy status to narcotic agent
CPT/HCPCS: 36415; 58571; 81025; 85027; 86850; 86900; 86901; 88307; J0131; J0690; J1100; J1170; J1885; J2250; J2405; J2765; J3010; S2900

== ENCOUNTER → 2022-02-05 | Outpatient (REF) | payer OTHER ==
[~2022-02-05] MED LIST changes: -BUPIVACAINE/EPIN 0.25% 30 ML VIAL As Ordered ONE; -FLUORESCEIN 10% (100MG/ML) 5 ML VIAL As Ordered ONE; -LR 1,000 ML IV ONE; +PERC5TAB12 PO; -ceFAZolin SOD 2 GM in IV 1 EA IV ONE
[2022-02-05 17:07] LABS: BASO # 0.1 10^3/uL (0.0-0.2); BASO % 0.6 % (0.0-1.0); EOS # 0.3 10^3/uL (0.0-0.5); EOS % 3.1 % (0.0-3.0); HEMATOCRIT 40.2 % (36.0-47.0); HEMOGLOBIN 13.6 g/dl (12.0-15.5); LYMPH # 2.4 10^3/uL (1.5-5.0); LYMPH % 28.4 % (24.0-44.0); MEAN CORPUSCULAR HEMOGLOBIN 29.8 pg (27.0-33.0); MEAN CORPUSCULAR HGB CONC 33.8 g/dl (32.0-36.5); MONO # 0.7 10^3/uL (0.0-0.8); MONO % 8.5 % (2.0-8.0); NEUTROPHILS # 5.1 10^3/uL (1.5-8.5); NEUTROPHILS % 59.2 % (36.0-66.0); PLATELET COUNT, AUTOMATED 360 10^3/uL (150-450); RED BLOOD COUNT 4.57 10^6/uL (4.00-5.40); WHITE BLOOD COUNT 8.6 10^3/uL (4.0-10.0)
[2022-02-05 17:54] LABS: BLOOD UREA NITROGEN 16 MG/DL (7-18); CALCIUM LEVEL 9.2 MG/DL (8.5-10.1); CARBON DIOXIDE LEVEL 27 MEQ/L (21-32); CHLORIDE LEVEL 105 MEQ/L (98-107); CREATININE FOR GFR 0.67 MG/DL (0.55-1.30); FREE T4 0.76 NG/DL (0.76-1.46); GLOMERULAR FILTRATION RATE > 60.0 (>60); GLUCOSE, FASTING 100 MG/DL (70-100); SODIUM LEVEL 138 MEQ/L (136-145)
== END ==
LOC: M SFHCADAM 13:32
PROVIDERS: ATTEND Physician Assistant
DX: E03.8 Other specified hypothyroidism (principal)

== ENCOUNTER → 2023-02-07 | Outpatient (REF) | payer BC, OTHER ==
[2023-02-07 16:47] LABS: BASO # 0.1 10^3/uL (0.0-0.2); BASO % 0.6 % (0.0-1.0); EOS # 0.3 10^3/uL (0.0-0.5); EOS % 2.9 % (0.0-3.0); HEMATOCRIT 36.3 % (36.0-47.0); HEMOGLOBIN 12.9 g/dl (12.0-15.5); LYMPH # 2.9 10^3/uL (1.5-5.0); LYMPH % 28.9 % (24.0-44.0); MEAN CORPUSCULAR HEMOGLOBIN 30.5 pg (27.0-33.0); MEAN CORPUSCULAR HGB CONC 35.5 g/dl (32.0-36.5); MEAN CORPUSCULAR VOLUME 85.8 fl (80.0-96.0); MONO # 0.8 10^3/uL (0.0-0.8); MONO % 8.2 % (2.0-8.0); NEUTROPHILS % 59.1 % (36.0-66.0); PLATELET COUNT, AUTOMATED 335 10^3/uL (150-450); RED BLOOD COUNT 4.23 10^6/uL (4.00-5.40); WHITE BLOOD COUNT 10.1 10^3/uL (4.0-10.0)
[2023-02-07 22:55] LABS: ALBUMIN 3.9 G/DL (3.2-5.2); ALKALINE PHOSPHATASE 38 U/L (46-116); ALT/SGPT 18 U/L (7.0-40); AST/SGOT 14 U/L (<34); BILIRUBIN,TOTAL 0.4 MG/DL (0.3-1.2); BLOOD UREA NITROGEN 19 MG/DL (9-23); CALCIUM LEVEL 9.1 MG/DL (8.5-10.1); CARBON DIOXIDE LEVEL 29 MMOL/L (20-31); CHLORIDE LEVEL 104 MMOL/L (98-107); CHOLESTEROL LEVEL 165 MG/DL (<200); CHOLESTEROL RISK RATIO 3.22 (<5); CREATININE FOR GFR 0.72 MG/DL (0.55-1.30); FREE T4 0.81 NG/DL (0.89-1.76); GLOMERULAR FILTRATION RATE > 60.0 (>60); GLUCOSE, FASTING 76 MG/DL (60-100); HDL CHOLESTEROL 51.2 MG/DL (>40); LDL CHOLESTEROL 99.6 MG/DL (<100); NON-HDL-C 113.8 MG/DL; POTASSIUM SERUM 3.7 MMOL/L (3.5-5.1); SODIUM LEVEL 139 MMOL/L (136-145); THYROID STIMULATING HORMONE 4.529 uIU/ML (0.55-4.78); TOTAL PROTEIN 6.9 G/DL (5.7-8.2); TRIGLYCERIDES LEVEL 71 MG/DL (<150)
[2023-02-08 00:42] LABS: HEMOGLOBIN A1c 4.4 % (4.0-6.0)
== END ==
LOC: M SFHCADAM 15:14
PROVIDERS: ATTEND Physician Assistant
DX: Z00.00 Encounter for general adult medical examination without abnormal findings (principal); Z68.31 Body mass index [BMI] 31.0-31.9, adult; E03.8 Other specified hypothyroidism

== ENCOUNTER → 2024-01-04 | Outpatient (CLI) | payer BC ==
[~2024-01-04] MED LIST changes: +ONDA-282 PO; -ONDA4TAB6 PO
== END ==
LOC: M WHC 15:25
PROVIDERS: ATTEND Obstetrics & Gynecology
DX: Z12.31 Encounter for screening mammogram for malignant neoplasm of breast (principal); N63.15 Unspecified lump in the right breast, overlapping quadrants; N63.21 Unspecified lump in the left breast, upper outer quadrant

== ENCOUNTER → 2024-01-23 | Outpatient (CLI) | payer BC | LOC: M WHC 13:29 | PROVIDERS: ATTEND Obstetrics & Gynecology | DX: Z12.31 Encounter for screening mammogram for malignant neoplasm of breast (principal) | CPT/HCPCS: 76642; 77066; G0279 ==

== ENCOUNTER → 2024-02-06 | Outpatient (REF) | payer BC ==
[2024-02-06 13:00] LABS: BASO % 0.6 % (0.0-1.0); EOS # 0.2 10^3/uL (0.0-0.5); EOS % 3.2 % (0.0-3.0); HEMATOCRIT 36.9 % (36.0-47.0); HEMOGLOBIN 12.7 g/dl (12.0-15.5); LYMPH # 2.1 10^3/uL (1.5-5.0); LYMPH % 29.7 % (24.0-44.0); MEAN CORPUSCULAR HEMOGLOBIN 30.9 pg (27.0-33.0); MEAN CORPUSCULAR HGB CONC 34.4 g/dl (32.0-36.5); MEAN CORPUSCULAR VOLUME 89.8 fl (80.0-96.0); MONO # 0.6 10^3/uL (0.0-0.8); MONO % 8.2 % (2.0-8.0); NEUTROPHILS # 4.1 10^3/uL (1.5-8.5); PLATELET COUNT, AUTOMATED 315 10^3/uL (150-450); RED BLOOD COUNT 4.11 10^6/uL (4.00-5.40)
[2024-02-06 13:11] LABS: HEMOGLOBIN A1c 4.7 % (4.0-6.0)
[2024-02-06 13:24] LABS: THYROID STIMULATING HORMONE 5.075 uIU/ML (0.55-4.78)
[2024-02-06 13:26] LABS: FREE T4 1.17 NG/DL (0.89-1.76)
[2024-02-06 13:28] LABS: ALBUMIN 3.7 G/DL (3.2-5.2); ALKALINE PHOSPHATASE 37 U/L (46-116); ALT/SGPT 33 U/L (7.0-40); AST/SGOT 15 U/L (<34); BILIRUBIN,TOTAL 0.6 MG/DL (0.3-1.2); BLOOD UREA NITROGEN 14 MG/DL (9-23); CALCIUM LEVEL 9.7 MG/DL (8.5-10.1); CARBON DIOXIDE LEVEL 30 MMOL/L (20-31); CHLORIDE LEVEL 107 MMOL/L (98-107); CHOLESTEROL LEVEL 172 MG/DL (<200); CHOLESTEROL RISK RATIO 3.63 (<5); CREATININE FOR GFR 0.65 MG/DL (0.55-1.30); GLOMERULAR FILTRATION RATE > 60.0 (>58); GLUCOSE, FASTING 99 MG/DL (60-100); HDL CHOLESTEROL 47.3 MG/DL (>40); LDL CHOLESTEROL 112.3 MG/DL (<100); NON-HDL-C 124.7 MG/DL; POTASSIUM SERUM 4.3 MMOL/L (3.5-5.1); SODIUM LEVEL 140 MMOL/L (136-145); TOTAL PROTEIN 6.8 G/DL (5.7-8.2); TRIGLYCERIDES LEVEL 62 MG/DL (<150)
== END ==
LOC: M SFHCADAM 09:00
PROVIDERS: ATTEND Physician Assistant
DX: E03.8 Other specified hypothyroidism (principal); Z68.31 Body mass index [BMI] 31.0-31.9, adult; G43.909 Migraine, unspecified, not intractable, without status migrainosus

== ENCOUNTER → 2024-02-23 | Outpatient (CLI) | payer BC | LOC: M ADAMS 09:45 | PROVIDERS: ATTEND Chiropractor | DX: M54.50 Low back pain, unspecified (principal); G89.29 Other chronic pain ==

== ENCOUNTER → 2024-05-11 | Outpatient (REF) | payer BC ==
[2024-05-11 18:04] LABS: THYROID STIMULATING HORMONE 2.005 uIU/ML (0.55-4.78)
[2024-05-11 18:06] LABS: FREE T4 1.12 NG/DL (0.89-1.76)
== END ==
LOC: M SFHCADAM 14:25
PROVIDERS: ATTEND Physician Assistant
DX: E03.8 Other specified hypothyroidism (principal)

== ENCOUNTER → 2024-12-18 | Outpatient (REF) | payer BC ==
[2024-12-18 17:25] LABS: PLATELET COUNT, AUTOMATED 324 10^3/uL (150-450)
[2024-12-18 17:45] LABS: ALT/SGPT 27 U/L (7.0-40); AST/SGOT 20 U/L (<34); C REACTIVE PROTEIN QUANTITATIV < 0.50 MG/DL (<1.0); CALCIUM LEVEL 9.5 MG/DL (8.5-10.1); CARBON DIOXIDE LEVEL 28 MMOL/L (20-31); CHLORIDE LEVEL 104 MMOL/L (98-107); CREATININE FOR GFR 0.74 MG/DL (0.55-1.30); GLOMERULAR FILTRATION RATE > 90.0 (>58); POTASSIUM SERUM 4.0 MMOL/L (3.5-5.1); SODIUM LEVEL 143 MMOL/L (136-145)
[2024-12-18 17:46] LABS: FREE T4 1.23 NG/DL (0.89-1.76)
[2024-12-21 13:29] LABS: EBV AB TO NUCLEAR ANTIGEN > 600.00 U/mL (<18.00); EBV VIRAL CAPSID AG IGG > 750.00 U/mL (<18.00); EBV VIRAL CAPSID AG IGM < 36.00 U/mL (<36.00)
[2024-12-22 14:33] LABS: LYME TOTAL ANTIBODY CIA <= 0.90 Index (<=0.90)
== END ==
LOC: M SFHCADAM 13:01
PROVIDERS: ATTEND Physician Assistant
DX: E03.8 Other specified hypothyroidism (principal); R53.83 Other fatigue

== ENCOUNTER → 2025-01-28 | Outpatient (CLI) | payer BC | LOC: M WHC 13:38 | PROVIDERS: ATTEND Obstetrics & Gynecology | DX: Z12.31 Encounter for screening mammogram for malignant neoplasm of breast (principal) ==